=== PATIENT | female | born 1950 | race Caucasian/White ===

== ENCOUNTER → 2022-07-20 | Outpatient (REF) | payer MEDICARE | LOC: M LAB REF 17:24 | PROVIDERS: ATTEND Internal Medicine Nephrology | DX: N39.0 Urinary tract infection, site not specified (principal) ==

== ENCOUNTER → 2022-08-10 | Outpatient (CLI) | payer MEDICARE | LOC: M PLAIMG 09:49 | PROVIDERS: ATTEND Internal Medicine Nephrology | DX: N18.31 Chronic kidney disease, stage 3a (principal); N20.0 Calculus of kidney ==

== ENCOUNTER → 2022-11-02 | Outpatient (REF) | payer MEDICARE | LOC: M LAB REF 17:12 | PROVIDERS: ATTEND Internal Medicine Nephrology | DX: N39.0 Urinary tract infection, site not specified (principal) ==

== ENCOUNTER 2025-03-13 07:57 | Day surgery (SDC) | payer MEDICARE ==
[~2025-03-13] VITALS: Ht 162.6 cm; Wt 81.2 kg
[~2025-03-13 07:57] MED LIST: CITA20TA6 PO; COLA100C5 PO; FENO145T7 PO; LISI5TAB11 PO; METO1TAB87 PO; MIDAZOLAM INJ 2 MG/2 ML VIAL As Ordered ONE; PHENYLEPHRINE 10% OPHTH SOL 5ML OD PRN; ZOCO80TA PO
[2025-03-13] MEDS: OFLOXACIN 0.3 % (OCUFLOX) OPTH SOL 5ML OD ONE (08:47)
[2025-03-13] MEDS: TROPICAMIDE 1% OPHTH SOLN 15ML OD SCH (08:47)
[2025-03-13] MEDS: CYCLOPENTOLATE 1% OPHTH SOLN 2 ML BTL OD SCH (08:47)
[2025-03-13] MEDS: LIDOCAINE 3.5% 1 ML OPHTH TOPICAL GEL OU ONE (08:47)
[2025-03-13] MEDS: PHENYLEPHRINE 2.5% OPHTH SOL 2ML OD SCH (08:47)
[2025-03-13] MEDS: CEFUROXIME 1 MG/0.1 ML INTRACAMERAL INJ As Ordered ONE (09:23)
[2025-03-13] MEDS: LIDOCAINE 1% SDV 5 ML VIAL As Ordered ONE (09:23)
[2025-03-13] MEDS: BSS IRRIG/VANCO(10MG)/TOBRA(5MG)/EPINEPH(1:1000-0.5CC)500ML BAG-ORONLY As Ordered ONE (09:24)
[2025-03-13 09:40] VITALS: BP 160/70; TEMP 97.2; O2SAT 96
== END 2025-03-13 09:55 | disposition home or self-care (01) ==
LOC: M SDC 07:57
PROVIDERS: ATTEND Ophthalmology
DX: H25.11 Age-related nuclear cataract, right eye (principal); I25.10 Atherosclerotic heart disease of native coronary artery without angina pectoris; I10 Essential (primary) hypertension; Z79.899 Other long term (current) drug therapy
CPT/HCPCS: 66984; J0697; J2250; J3010; V2632

== ENCOUNTER 2025-03-27 08:13 | Day surgery (SDC) | payer MEDICARE ==
[~2025-03-27] VITALS: Ht 162.6 cm; Wt 81.9 kg
[~2025-03-27 08:13] MED LIST changes: -PHENYLEPHRINE 10% OPHTH SOL 5ML OD PRN; +PHENYLEPHRINE 10% OPHTH SOL 5ML OS PRN
[2025-03-27] MEDS: OFLOXACIN 0.3 % (OCUFLOX) OPTH SOL 5ML OS ONE (09:17)
[2025-03-27] MEDS: LIDOCAINE 3.5% 1 ML OPHTH TOPICAL GEL OU ONE (09:17)
[2025-03-27] MEDS: PHENYLEPHRINE 2.5% OPHTH SOL 2ML OS SCH (09:18)
[2025-03-27] MEDS: CYCLOPENTOLATE 1% OPHTH SOLN 2 ML BTL OS SCH (09:18)
[2025-03-27] MEDS: TROPICAMIDE 1% OPHTH SOLN 15ML OS SCH (09:18)
[2025-03-27] MEDS: BSS IRRIG/VANCO(10MG)/TOBRA(5MG)/EPINEPH(1:1000-0.5CC)500ML BAG-ORONLY As Ordered ONE (09:58)
[2025-03-27] MEDS: LIDOCAINE 1% SDV 5 ML VIAL As Ordered ONE (09:58)
[2025-03-27] MEDS: CEFUROXIME 1 MG/0.1 ML INTRACAMERAL INJ As Ordered ONE (09:58)
[2025-03-27 10:09] VITALS: BP 129/60; TEMP 96.7; O2SAT 95
== END 2025-03-27 10:25 | disposition home or self-care (01) ==
LOC: M SDC 08:13
PROVIDERS: ATTEND Ophthalmology
DX: H25.12 Age-related nuclear cataract, left eye (principal); I25.10 Atherosclerotic heart disease of native coronary artery without angina pectoris; I10 Essential (primary) hypertension; E78.00 Pure hypercholesterolemia, unspecified; Z79.899 Other long term (current) drug therapy; Z79.82 Long term (current) use of aspirin; Z85.828 Personal history of other malignant neoplasm of skin; Z95.1 Presence of aortocoronary bypass graft; Z98.41 Cataract extraction status, right eye; F41.9 Anxiety disorder, unspecified; F32.A Depression, unspecified
CPT/HCPCS: 66984; J0697; J2250; J3010; V2632